=== PATIENT | male | born 1945 | race Caucasian/White ===

== ENCOUNTER 2018-12-14 06:59 | Observation (INO) | payer OTHER, SELFPAY ==
[2018-12-11 10:30] LABS: BASOPHILS % (AUTO) 0.3 % (0.0-5.0); EOSINOPHILS % (AUTO) 4.7 % (0.0-8.0); HEMATOCRIT 36.2 % (42-54); LYMPHOCYTES % (AUTO) 13.4 % (21.0-51.0); MEAN CORPUSCULAR HEMOGLOBIN 32.8 pg (27.0-33.0); MEAN CORPUSCULAR HGB CONC 33.6 g/dL (32.0-36.0); MEAN CORPUSCULAR VOLUME 97.6 fL (79-99); MONOCYTES % (AUTO) 7.4 % (3.0-13.0); NEUTROPHILS % (AUTO) 74.2 % (40.0-77.0); PLATELET COUNT (AUTO) 118 K/uL (130-400); RED BLOOD CELL COUNT(AUTO) 3.72 MIL/uL (4.50-6.20); RED CELL DISTRIBUTION WIDTH 15.5 % (11.0-15.5); WHITE BLOOD COUNT (AUTO) 4.2 K/uL (4.8-10.8)
[2018-12-11 10:31] VITALS: BP 175/66
[2018-12-11 10:51] LABS: INR 0.96 (0.85-1.15); PARTIAL THROMBOPLASTIN TIME 27.1 SEC (26.3-35.5); PROTHROMBIN TIME 10.1 SEC (9.6-11.6)
[2018-12-11 10:55] LABS: ALBUMIN 3.5 g/dL (3.5-5.0); ASPARTATE AMINOTRANSFERASE 13 U/L (10-37); BILIRUBIN,TOTAL 0.4 mg/dL (0.2-1.0); CARBON DIOXIDE 30 mmol/L (21-32); CHLORIDE 100 mmol/L (101-111); CREATININE 6.7 mg/dL (0.5-1.5); GLOMERULAR FILTR. RATE CALC 9 mL/min (>60); GLUCOSE,RANDOM 126 mg/dL (70-105); POTASSIUM 4.6 mmol/L (3.5-5.1); SODIUM SERUM 137 mmol/L (136-145); TOTAL PROTEIN, SERUM 7.3 g/dL (6.0-8.3); UREA NITROGEN, BLOOD 44 mg/dL (7-18)
[2018-12-11 10:57] LABS: ALANINE AMINOTRANSFERASE < 6 U/L (12-78)
--- NOTE | 2018-12-11 20:23 | NUR ---
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
[~2018-12-14] VITALS: Ht 167.6 cm; Wt 58.5 kg
[2018-12-14] VITALS (13 sets, daily range): BP systolic 121–173; BP diastolic 59–83
[2018-12-14] MEDS ORDERED: FENTANYL CITRATE PF 50 MCG/1 ML 2ML VIAL ONE (07:15)
[2018-12-14] MEDS ORDERED: ONDANSETRON HCL 4 MG/2 ML VIAL ONE (07:15)
[2018-12-14] MEDS ORDERED: DEXAMETHASONE SOD PHOSPHATE 10MG/ML 1ML VIAL ONE ×2 (07:15→09:09)
[2018-12-14] MEDS ORDERED: SUCCINYLCHOLINE 200MG/10ML SYR ONE (07:15)
[2018-12-14] MEDS ORDERED: PROPOFOL 10 MG/ML 20ML VIAL IV ONE (07:15)
[2018-12-14] MEDS ORDERED: LIDOCAINE PF 2% 5ML ABBOJECT ONE (07:15)
[2018-12-14] MEDS ORDERED: GLYCOPYRROLATE 1 MG/5 ML SYRINGE ONE (07:15)
[2018-12-14] MEDS ORDERED: NEOSTIGMINE 5MG/5ML SYR IV ONE (07:15)
[2018-12-14] MEDS ORDERED: ROCURONIUM 10MG/1ML SYR 10 MG/ML ML ONE (07:16)
[2018-12-14] MEDS ORDERED: MIDAZOLAM HCL 1 MG/ML 2ML VIAL ONE (07:16)
[2018-12-14] MEDS ORDERED: EPHEDRINE SULFATE 50 MG/ML AMPULE ONE (07:20)
[2018-12-14] MEDS ORDERED: CEFAZOLIN SODIUM 1 GM VIAL ONE (07:57)
[2018-12-14] MEDS ORDERED: LIDOCAINE HCL 1% 20 ML VIAL ONE (09:06)
[2018-12-14] MEDS ORDERED: BUPIVACAINE/PF 0.25% 30ML VIAL IJ ONE (09:06)
[2018-12-14] MEDS ORDERED: PROTAMINE SULFATE 10 MG/ML 25ML VIAL IV ONE (11:17)
--- NOTE | 2018-12-14 11:59 | NUR ---
PT TO PACU, VSS. PT WITH NEW DIALYSIS FISTULA TO LEFT ARM, DRESSING CDI. RADIAL PULSE STRONG TO LEFT ARM, HAND WARM TO TOUCH GOOD CAP REFILL. DR. FRITZ AWARE OF PT'S CURRENT BP, NO NEW ORDERS GIVEN. Addendum: 12/14/18 at 1212 by JASMINA COLLINS RN RN Amended: Links added.
--- NOTE | 2018-12-14 12:38 | NUR ---
LEFT ARM WARM TO TACTILE, GOOD CAP REFILLS, AND GOOD RADIAL PULSE. Addendum: 12/14/18 at 1239 by JASMINA COLLINS RN RN Amended: Links added.
--- NOTE | 2018-12-14 12:53 | NUR ---
Both hands and feet contracted Addendum: 12/14/18 at 1440 by BETI SHELTON RN RN Amended: Links added.
[2018-12-14] MEDS ORDERED: AMLO5TAB9 PO (12:54)
[2018-12-14] MEDS ORDERED: CALC667T6 PO (12:56)
--- NOTE | 2018-12-14 15:05 | NUR ---
DR BECK ROUNDED ON PATIENT ORDERS FOR DIALYSIS GIVEN FOR TODAY AND ACUTE HEPATIC LABS ORDERED DIALYSIS NURSE AWARE AND PATIENT IS 3RD ON HER LIST. PATIENT INFORMED
[2018-12-14] MEDS: CALCIUM ACETATE 667 MG CAPSULE PO SCH (16:30)
[2018-12-14] MEDS ORDERED: SODIUM CHLORIDE 0.9% 1000ML 1,000 ML IV PRN (17:15)
[2018-12-14] MEDS ORDERED: NITROGLYCERIN 0.4 MG SL TAB SL PRN (17:15)
[2018-12-14] MEDS ORDERED: HEPARIN SODIUM 5000UNIT/ML 1ML VIAL IJ PRN (17:15)
[2018-12-14] MEDS ORDERED: 0.9% SODIUM CHLORIDE 1000 ML IV BAG IV PRN (17:15)
[2018-12-14] MEDS ORDERED: ACETAMINOPHEN 325 MG TAB PO PRN (17:15)
[2018-12-14] MEDS ORDERED: CALCIUM ACETATE 667 MG CAPSULE PO SCH (18:00)
[2018-12-14] MEDS ORDERED: AMLODIPINE BESYLATE 5 MG TAB PO SCH (18:00)
[2018-12-15 00:12] VITALS: BP 121/63
[2018-12-15 04:08] LABS: HEMATOCRIT 32.4 % (42-54); MEAN CORPUSCULAR HEMOGLOBIN 32.8 pg (27.0-33.0); MEAN CORPUSCULAR HGB CONC 33.5 g/dL (32.0-36.0); MEAN CORPUSCULAR VOLUME 97.9 fL (79-99); NUCLEATED RED BLOOD CELLS 0.1 % (0.0-0.19); PLATELET COUNT (AUTO) 95 K/uL (130-400); RED BLOOD CELL COUNT(AUTO) 3.31 MIL/uL (4.50-6.20); RED CELL DISTRIBUTION WIDTH 15.5 % (11.0-15.5); WHITE BLOOD COUNT (AUTO) 5.8 K/uL (4.8-10.8)
[2018-12-15 04:14] LABS: POTASSIUM 4.3 mmol/L (3.5-5.1)
[2018-12-15 04:16] VITALS: BP 124/64
[2018-12-15 07:15] LABS: HEPATITIS A ANTIBODY IGM Negative (Negative); HEPATITIS B CORE IGM Negative (Negative); HEPATITIS Bs ANTIGEN SCREEN P Negative (Negative)
[2018-12-15] MEDS: CALCIUM ACETATE 667 MG CAPSULE PO SCH ×2 (07:56→12:37)
[2018-12-15 08:00] VITALS: BP 155/74
--- NOTE | 2018-12-15 10:00 | NUR ---
JACKELIN DURAN CLEAR PATIENT FOR DISCHARGE FOLLOW-UP WITH DR JASSO IN CLINIC ON Dec AFTER DIALYSIS.
[2018-12-15 11:17] VITALS: BP 167/80
--- NOTE | 2018-12-15 12:37 | NUR ---
PATIENT GIVEN DISCHARGE INSTRUCTION AND VERBALIZED UNDERSTANDING , IV REMOVED WITH CATHETER INTACT AND PRESSURE HELD TILL BLEEDING STOPPED, REVIEWED FOLLOW-UP APPOINTMENT , NO QUESTIONS OR CONCERNS PATIENT LEFT VIA WHEELCHAIR TO MET FRIEND.
== END 2018-12-15 12:40 | disposition home or self-care (01) ==
LOC: DAH 06:59 → DAHIP 07:00 → 4DH 12:41
PROVIDERS: ADMIT Student in an Organized Health Care Education/Training Program; ATTEND Student in an Organized Health Care Education/Training Program
DX: I12.0 Hypertensive chronic kidney disease with stage 5 chronic kidney disease or end stage renal disease (principal); N18.6 End stage renal disease; Z99.2 Dependence on renal dialysis; Z79.899 Other long term (current) drug therapy
CPT/HCPCS: 36415 ×3; 36819; 80048; 80053; 80074; 84132; 85025; 85027; 85610; 85730; 86850 ×2; 86900 ×2; 86901 ×2; 93005; A4215; A4221; A4222; A4223; A4450; A4649; A4663; A4930; A6260; C1713 ×2; G0378 ×21; J0330; J0690; J1100 ×2; J1644 ×2; J2001; J2250; J2405; J2704; J2710; J2720; J3010; J3490 ×3; 90935

== ENCOUNTER → 2019-02-02 | Outpatient (CLI) | payer OTHER ==
[~2019-02-02] MED LIST: AMLO5TAB9 PO; CALC667T6 PO
== END | disposition home or self-care (01) ==
LOC: RAH 14:51
PROVIDERS: ATTEND Student in an Organized Health Care Education/Training Program
DX: M79.602 Pain in left arm (principal)
CPT/HCPCS: 93990